=== PATIENT | female | born 1980 | race American Indian/Alaskan Native ===

== ENCOUNTER 2017-03-16 03:48 | Emergency (ER) | payer SELFPAY ==
[2017-03-16 03:48] VITALS: BMI 22.3
[2017-03-16] MEDS ORDERED: Sodium Chloride 0.9% 1,000 ML IV ONE (04:08)
[2017-03-16 04:11] VITALS: RESP 18; O2SAT 100
[2017-03-16] MEDS ORDERED: Sodium Chloride 0.9% 1,000 ML ONE (04:15)
--- NOTE | 2017-03-16 04:23 | C.PDOC ---
History Of Present Illness 36 y/o female presents to the ED for evaluation of abdominal pain and vaginal bleeding which began around 6 days ago. Patient describes her pain as sharp and cramping in nature. She also reports associated back pain. Patient states she has been having bleeding since 03/02/17 with light spotting, but her period never stopped. She denies fever, chills, nausea, vomiting, diarrhea, constipation, dysuria, changes in appetite. Time Seen by Provider: 03/16/17 04:03 Chief Complaint (Nursing): Female Genitourinary History Per: Patient History/Exam Limitations: no limitations Onset/Duration Of Symptoms: Days Current Symptoms Are (Timing): Still Present Quality Of Discomfort: "Pain" Associated Symptoms: Back Pain. denies: Fever, Chills, Nausea, Vomiting, Diarrhea, Constipation, Urinary Symptoms (dysuria ) Additional History Per: Patient Abnormal Vaginal Bleeding: Yes Past Medical History Reviewed: Historical Data, Nursing Documentation, Vital Signs Vital Signs: Last Vital Signs Temp 97.9 F 03/16/17 04:08 Pulse 83 03/16/17 04:08 Resp 18 03/16/17 04:08 BP 124/82 03/16/17 04:08 Pulse Ox 100 03/16/17 05:41 - Medical History PMH: Anemia Surgical History: No Surg Hx Family History: States: Unknown Family Hx - Social History Hx Tobacco Use: Yes Hx Alcohol Use: No Hx Substance Use: No - Immunization History Hx Tetanus Toxoid Vaccination: No Hx Influenza Vaccination: No Hx Pneumococcal Vaccination: No Review Of Systems Constitutional: Negative for: Fever, Chills Gastrointestinal: Positive for: Abdominal Pain. Negative for: Nausea, Vomiting , Diarrhea, Constipation Genitourinary: Positive for: Vaginal Bleeding. Negative for: Dysuria Musculoskeletal: Positive for: Back Pain Physical Exam - Physical Exam Appears: Non-toxic, No Acute Distress Skin: Normal Color, Warm, Dry Head: Atraumatic, Normacephalic Eye(s): bilateral: Normal Inspection Oral Mucosa: Moist Neck: Supple Chest: Symmetrical, No Deformity, No Tenderness Cardiovascular: Rhythm Regular, No Murmur Respiratory: Normal Breath Sounds, No Rales, No Rhonchi, No Wheezing Gastrointestinal/Abdominal: Soft, Tenderness (suprapubic, left lower quadrant ) , No Mass, No Distention, No Guarding, No Rebound Extremity: Bilateral: Atraumatic, Normal ROM Neurological/Psych: Oriented x3, Normal Speech Gait: Steady ED Course And Treatment - Laboratory Results Result Diagrams: 03/16/17 04:33 03/16/17 04:33 Lab Interpretation: No Acute Changes O2 Sat by Pulse Oximetry: 100 (on RA) Pulse Ox Interpretation: Normal Medical Decision Making Medical Decision Making: Impression: 36 y/o female with lower abdominal pain Plan: * labs * Toradol IV * IV Fluids * reassess and disposition Progress: labs ordered and reviewed. Hgb is 9.1, no electrolyte abnormality, UA shows RBCs. Patient received Toradol IV and IV fluids. Upon reeval patient seated comfortably in no distress. Discussed lab results with patient. She reports pain is improving, better than when she arrived to ED. I advised patient to follow up with her vault cashier and to take her iron supplements. Will discharge patient with medication. Disposition Counseled Patient/Family Regarding: Diagnosis, Need For Followup, Rx Given - [facility]position [facility] Disposition: HOME/ ROUTINE Disposition Time: 06:01 Condition: STABLE Additional Instructions: Please take medication for pain as needed and Provera for irregular bleeding. You must follow up with your vault cashier for further evaluation. Return to the emergency department at any time if symptoms persist or worsen. 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 - Scribe Statement The provider has reviewed the documentation as recorded by the Scribe (Renu Guzman) All medical record entries made by the Scribe were at my direction and personally dictated by me. I have reviewed the chart and agree that the record accurately reflects my personal performance of the history, physical exam, medical decision making, and the department course for this patient. I have also personally directed, reviewed, and agree with the discharge instructions and disposition.
[2017-03-16 04:28] LABS: RBC URINE 362 /hpf (0-3); URINE BILIRUBIN NEGATIVE (NEGATIVE); URINE BLOOD 3+ (NEGATIVE); URINE COLOR Yellow (YELLOW); URINE GLUCOSE (UA) NORMAL (Normal); URINE KETONE NEGATIVE (NEGATIVE); URINE LEUKOCYTE ESTERASE NEG Leu/uL (Negative); URINE PROTEIN 1+ mg/dL (NEGATIVE); WBC URINE 42 /hpf (0-5)
[2017-03-16 04:40] LABS: BASO # 0.1 K/uL (0.0-0.2); MEAN CORPUSCULAR HEMOGLOBIN 20.2 pg (27.0-31.0); MONO # 0.3 K/uL (0.0-0.8); WHITE BLOOD COUNT 4.6 K/uL (4.8-10.8)
[2017-03-16 04:58] LABS: BASO % 1.6 % (0.0-2.0); EOS # 0.1 K/uL (0.0-0.7); HEMATOCRIT 29.6 % (34.0-47.0); LYMPH # 1.4 K/uL (1.0-4.3); LYMPH % 30.2 % (20.0-40.0); MEAN CELL VOLUME 65.8 fL (81.0-99.0); MEAN CORPUSCULAR HGB CONC 30.7 g/dL (33.0-37.0); MEAN PLATELET VOLUME 9.8 fL (7.2-11.7); MONO % 7.2 % (0.0-10.0); NRBC % 0.3 % (0.0-2.0); RED CELL DISTRIBUTION WIDTH 20.7 % (11.5-14.5)
[2017-03-16 05:43] LABS: CHLORIDE 108 mmol/L (98-107); SODIUM 139 mmol/L (132-148)
[2017-03-16 05:44] LABS: POTASSIUM 3.6 mmol/L (3.6-5.2)
[2017-03-16 05:45] LABS: GFR AFRICAN-AMERICAN > 60
[2017-03-16 05:46] LABS: ALB/GLOB RATIO 1.1 (1.0-2.1); ALKALINE PHOSPHATASE 46 U/L (38-126); ALT/SGPT 35 U/L (9-52); AST/SGOT 35 U/L (14-36); BILIRUBIN,TOTAL 0.7 mg/dL (0.2-1.3); BLOOD UREA NITROGEN 10 mg/dL (7-17); CALCIUM 9.1 mg/dl (8.6-10.4); CARBON DIOXIDE 18 mmol/L (22-30); GLUCOSE,RANDOM 81 mg/dL (65-105); TOTAL PROTEIN 7.8 g/dL (6.3-8.3)
[2017-03-16 06:16] VITALS: BP 131/84; PULSE 77; TEMP 97.8
== END 2017-03-16 06:17 | disposition home or self-care (01) ==
LOC: C.ER 03:48
DX: N93.8 Other specified abnormal uterine and vaginal bleeding (principal)
CPT/HCPCS: 80053; 81001; 83690; 84703; 85025; 96361; 96374; 99285; J1885; J7040

== ENCOUNTER 2017-03-21 03:54 | Observation (INO) | payer SELFPAY ==
[2017-03-21 03:54] VITALS: BMI 22.3
[2017-03-21 04:36] LABS: RBC URINE 11 /hpf (0-3); URINE BACTERIA RARE (<OCC); URINE BILIRUBIN NEGATIVE (NEGATIVE); URINE BLOOD 1+ (NEGATIVE); URINE COLOR Yellow (YELLOW); URINE GLUCOSE (UA) NORMAL (Normal); URINE KETONE NEGATIVE (NEGATIVE); URINE LEUKOCYTE ESTERASE TRACE Leu/uL (Negative); URINE PROTEIN NEGATIVE (NEGATIVE); WBC URINE 4 /hpf (0-5)
[2017-03-21] MEDS ORDERED: Sodium Chloride 0.9% 1,000 ML IV ONE (04:43)
[2017-03-21] MEDS ORDERED: Sodium Chloride 0.9% 1,000 ML ONE (04:48)
--- NOTE | 2017-03-21 04:50 | C.PDOC ---
History Of Present Illness <Doreen Centeno - Last Filed: 03/21/17 06:38> <Ellis Olea - Last Filed: 03/21/17 07:53> 36 yo female w/PMHx of anemia, DUB, come in for evaluation of RLQ abdominal pain developed for past week. Pt sts, pain is constant, aching. Pt admits, was seen here on 03/16/17 and dx with DUB, received Rx: Metotrexate. Pt sts, "took 3- 4 pills, my vaginal bleeding moderate improved just spotting now but still have stomach pain". Pt admits, stopped medication due to worsening of abdominal pain. Otherwise, pt denies fever, chills, headache, dizziness, weakness, CP, SOB , dyspnea, palpitation, vomiting, diarrhea, change in appetite, back pian, UTI sx. Ambulate to ED for evaluation, not in any apparent distress. (Doreen Centeno) History Per: Patient <Doreen Centeno - Last Filed: 03/21/17 06:38> <Ellis Olea - Last Filed: 03/21/17 07:53> Time Seen by Provider: 03/21/17 04:34 Chief Complaint (Nursing): Female Genitourinary Past Medical History Reviewed: Historical Data, Nursing Documentation, Vital Signs - Medical History PMH: Anemia Surgical History: No Surg Hx Family History: States: No Known Family Hx - Social History Hx Tobacco Use: Yes Hx Alcohol Use: No Hx Substance Use: No - Immunization History Hx Tetanus Toxoid Vaccination: No Hx Influenza Vaccination: No Hx Pneumococcal Vaccination: No <Doreen Centeno - Last Filed: 03/21/17 06:38> Review Of Systems Except As Marked, All Systems Reviewed And Found Negative. Constitutional: Negative for: Fever, Chills ENT: Negative for: Throat Pain Cardiovascular: Negative for: Chest Pain, Palpitations, Edema, Light Headedness Respiratory: Negative for: Cough, Shortness of Breath Gastrointestinal: Positive for: Abdominal Pain. Negative for: Nausea, Vomiting , Diarrhea, Melena, Hematochezia, Hematemesis Genitourinary: Positive for: Vaginal Bleeding (improved). Negative for: Dysuria , Frequency, Incontinence Skin: Negative for: Rash Neurological: Negative for: Weakness, Numbness, Altered Mental Status, Headache , Dizziness <Doreen Centeno - Last Filed: 03/21/17 06:38> Physical Exam - Physical Exam Appears: Well, Non-toxic, No Acute Distress Skin: Normal Color, Warm, Dry, No Rash Eye(s): bilateral: PERRL Nose: No Discharge Oral Mucosa: Moist, No Drooling Throat: No Erythema, No Drooling Neck: Supple Cardiovascular: Rhythm Regular, No Friction Rub, No Murmur, No JVD Respiratory: No Decreased Breath Sounds, No Accessory Muscle Use, No Stridor, No Wheezing Gastrointestinal/Abdominal: Soft, Tenderness (RLQ tenderness), No Distention, No Guarding Back: No CVA Tenderness Extremity: No Pedal Edema, No Deformity Neurological/Psych: Oriented x3, Normal Speech <Doreen Centeno - Last Filed: 03/21/17 06:38> ED Course And Treatment - Laboratory Results Result Diagrams: 03/21/17 05:10 03/21/17 05:10 Lab Interpretation: Abnormal Urine POC: Negative O2 Sat by Pulse Oximetry: 100 Pulse Ox Interpretation: Normal <Doreen Centeno - Last Filed: 03/21/17 06:38> - Laboratory Results Result Diagrams: 03/21/17 05:10 03/21/17 05:10 <Ellis Olea - Last Filed: 03/21/17 07:53> ED OBSERVATION Date of observation admission: 03/21/17 Time of observation admission: 04:35 <Doreen Centeno - Last Filed: 03/21/17 06:38> <Ellis Olea - Last Filed: 03/21/17 07:53> - Observation admission statement Patient is being placed in observation because:: Abdominal pain (Doreen Centeno) - Goals of Observation Goals of observation are:: Diagnostics, imaging, analgesics, re-evaluation (Doreen Centeno) - Progress Note Progress Note: 03/21/17 5:2-, pt resting comfortably, not in any apparent distress. Afebrile, hemodynamicaly stable. non-toxic. Abd: benign, (-) guarding, (-) rebound. back: (-) CVA tenderness. Blood work review and appears abnormal compare to previous from 03/16/17. Pt has drop in H/H by [address] abd/pelvis. Results discussed with pt, denies previous hx of acute anemia or transfusion. Possible admission offered to pt, but still await imaging. 06:38, pt appears unchanged. Hemodynamicaly stable. Abd: benign. CT abd/pelvis performed await results. Case sign out to DENNIS Castro and . Pending: imaging results, re- evaluation, possible admission due to acute anemia. (Doreen Centeno) 03/21/17 07:46 Signed out to me at change of shift pending CT. IMPRESSION: 1. Numerous gallstones. 2. Probable ovarian cyst on the left of approximately 2 cm. Ovarian cyst on the right of approximately 3 cm. 3. -The appendix is normal. 4. No acute inflammatory process. No obstruction. Patient with acute blood loss anemia with Hb less than 8, symptomatic with lightheadedness and blurry vision, will require blood transfusion, which was already ordered. Will place on observation. (Ellis Olea) Disposition <Doreen Centeno - Last Filed: 03/21/17 06:38> Discussed With DrIrena: Laz Andres Doctor Will See Patient In The: ED - Disposition Disposition Time: 04:35 <Ellis Olea - Last Filed: 03/21/17 07:53> - Disposition Disposition: HOSPITALIZED Condition: FAIR - Clinical Impression Clinical Impression: Symptomatic anemia
[2017-03-21 05:17] LABS: EOS # 0.1 K/uL (0.0-0.7); MONO # 0.2 K/uL (0.0-0.8)
[2017-03-21 05:37] LABS: CHLORIDE 106 mmol/L (98-107); SODIUM 141 mmol/L (132-148)
[2017-03-21 05:39] LABS: BILIRUBIN,TOTAL 0.8 mg/dL (0.2-1.3); GFR AFRICAN-AMERICAN > 60
[2017-03-21 05:40] LABS: ALKALINE PHOSPHATASE 62 U/L (38-126); ALT/SGPT 49 U/L (9-52); AST/SGOT 68 U/L (14-36); BLOOD UREA NITROGEN 10 mg/dL (7-17); CARBON DIOXIDE 23 mmol/L (22-30); GLUCOSE,RANDOM 85 mg/dL (65-105); TOTAL PROTEIN 7.8 g/dL (6.3-8.3)
[2017-03-21 05:41] LABS: CALCIUM 9.3 mg/dl (8.6-10.4)
[2017-03-21 05:42] LABS: POTASSIUM 4.8 mmol/L (3.6-5.2)
[2017-03-21] MEDS ORDERED: Iodixanol 320 MG/ML 100 ML BOTTLE IV ONE (05:46)
[2017-03-21 06:00] LABS: BASO % 0.7 % (0.0-2.0); HEMATOCRIT 25.4 % (34.0-47.0); LYMPH # 2.7 K/uL (1.0-4.3); LYMPH % 60.6 % (20.0-40.0); MEAN CELL VOLUME 66.3 fL (81.0-99.0); MEAN CORPUSCULAR HEMOGLOBIN 19.8 pg (27.0-31.0); MEAN CORPUSCULAR HGB CONC 29.8 g/dL (33.0-37.0); MEAN PLATELET VOLUME 10.5 fL (7.2-11.7); PLATELET COUNT 111 K/uL (130-400); RED CELL DISTRIBUTION WIDTH 21.4 % (11.5-14.5); WHITE BLOOD COUNT 4.5 K/uL (4.8-10.8)
[2017-03-21 07:30] LABS: BASOPHIL 2 % (0-2); EOSINOPHIL 2 % (0-4); NEUTROPHIL 44 % (50-75); REACTIVE LYMPHOCYTES 28 % (0-0); TOTAL CELLS COUNTED 100
--- NOTE | 2017-03-21 09:28 | CP.PCM.HP ---
<James Fernandes - Last Filed: 03/21/17 10:37> History of Present Illness - History of Present Illness History of Present Illness: PGY1 Note for Dr. Andres HPI: Patient is a 36 year old AA female with a PMH of anemia diagnosed in 1999 by her PMD. She comes to the ED today with a CC of abdominal pain for 10d duration. She came to the ER on Thursday and they told her she dysfunctional vaginal bleeding and gave her naproxen and medroxyprogesterone. She said she continued to bleed and did not tolerate the medroxyprogesterone so she stopped taking it. It was associated with blurry vision and a ALEJANDRO. Nothing makes it better or worse. She describes the pain as a gas like pain and is associated with burping. It is mainly located on the left side and flank that radiates to her back. She states it is a 7/10. It has been constant since its onset. Her FDLMP was 03/02 and ended on 03/08 but she did have spotting until the . This is not regular for her. Her last BM was yesterday. She is complaining of weakness, dizzyness, blurry vision, ALEJANDRO, leg pain in her L. popliteal fossa that has resolved and vaginal d/c that is red and has an odor. She denies F, chills, N/V/D, constipation, cough, SOB, hemoptysis, speech changes, confusion, CP, rash , Urinary changes or blood in her urine. Denies sick contacts. Has traveled to [place] last month. She had one prior episode of vaginal bleeding 9 years ago that stopped spontaneously. PMH: anemia in 1999, blood transfusion in 2006 PSH: in FH: Mom, DM; Dad, unknown; sister, DM SH: Sexually active with no protection, works at [employer], single, lives with her son, smokes 3 black and milds per day, drinks on the weekends, smokes marijuana 4x/d Meds: Naproxen 500mg, medroxyprogesterone 10mg All: NKA ROS: * Const = denies WL * HEENT = blurry vision * Lungs = denies * Heart = denies, no echo, no cath * GI = denies * Renal = denies * = denies * Breast = Denies * Neuro = denies seizure, CVA, Memory changes, MS, Alzheimer, + weakness * Endo = denies thyroid, DM * Psych = no prior hospitalizations * Skin = denies * Onc = no hx of cancer of immune problems * Heme = denies easy bruising, leukemia, clots, + anemia/prior transfusion in 2006 * ID = denies hx of MRSA, C.diff, HIV Present on Admission - Present on Admission Any Indicators Present on Admission: No History of DVT/PE: No History of Uncontrolled Diabetes: No Urinary Catheter: No Decubitus Ulcer Present: No History Surgical Site Infection Following: None Review of Systems - Constitutional Constitutional: As Per HPI - EENT Eyes: As Per HPI Ears: As Per HPI Nose/Mouth/Throat: As Per HPI - Breasts Breasts: As Per HPI - Cardiovascular Cardiovascular: As Per HPI - Respiratory Respiratory: As Per HPI - Gastrointestinal Gastrointestinal: As Per HPI - Genitourinary Genitourinary: As Per HPI - Reproductive: Female Reproductive:Female: As Per HPI - Menstruation Menstruation: As Per HPI - Musculoskeletal Musculoskeletal: As Per HPI - Integumentary Integumentary: As Per HPI - Neurological Neurological: As Per HPI - Psychiatric Psychiatric: As Per HPI - Endocrine Endocrine: As Per HPI - Hematologic/Lymphatic Hematologic: As Per HPI Past Patient History - Past Social History Smoking Status: Light Smoker < 10 Cigarettes Daily - CARDIAC Hx Cardiac Disorders: No - HEMATOLOGICAL/ONCOLOGICAL Hx Anemia: Yes - PSYCHIATRIC Hx Substance Use: No - SURGICAL HISTORY Hx Surgeries: Yes Hx Section: Yes - ANESTHESIA Hx Anesthesia: Yes Hx Anesthesia Reactions: No Hx Malignant Hyperthermia: No Meds Allergies/Adverse Reactions: Allergies Allergy/AdvReac Type Severity Reaction Status Date / Time No Known Allergies Allergy Verified 03/16/17 04:06 Physical Exam - Constitutional Appears: Well, Non-toxic, No Acute Distress - Head Exam Head Exam: ATRAUMATIC, NORMAL INSPECTION, NORMOCEPHALIC - Eye Exam Eye Exam: EOMI - ENT Exam ENT Exam: Mucous Membranes Moist - Respiratory Exam Respiratory Exam: Clear to Auscultation Bilateral, NORMAL BREATHING PATTERN - Cardiovascular Exam Cardiovascular Exam: REGULAR RHYTHM, RRR. absent: Tachycardia Additional comments: carotid bruit - GI/Abdominal Exam GI & Abdominal Exam: Normal Bowel Sounds, Soft, Tenderness (tenderness more in the LLQ). absent: Distended, Firm - Extremities Exam Extremities exam: Negative for: calf tenderness, joint swelling, tenderness - Neurological Exam Neurological exam: Alert, Oriented x3 - Psychiatric Exam Psychiatric exam: Normal Affect, Normal Mood - Skin Skin Exam: Dry, Intact, Normal Color, Warm Results - Vital Signs Recent Vital Signs: Last Vital Signs Temp 98.1 F 03/21/17 04:00 Pulse 83 03/21/17 08:33 Resp 16 03/21/17 08:33 BP 128/98 H 03/21/17 08:33 Pulse Ox 97 03/21/17 08:33 - Labs Result Diagrams: 03/21/17 05:10 03/21/17 05:10 Labs: Laboratory Results - last 24 hr 03/21/17 03/21/17 03/21/17 05:10 05:10 07:17 WBC 4.5 L RBC 3.82 Hgb 7.6 L Hct 25.4 L MCV 66.3 L MCH 19.8 L MCHC 29.8 L RDW 21.4 H Plt Count 111 L MPV 10.5 Neut % (Auto) 32.7 L Lymph % (Auto) 60.6 H [place] % (Auto) 4.0 Eos % (Auto) 2.0 Baso % (Auto) 0.7 Neut # 1.5 L Lymph # 2.7 [place] # 0.2 Eos # 0.1 Baso # 0.0 Neutrophils % (Manual) 44 L Lymphocytes % (Manual) 20 Reactive Lymphs % 28 H Monocytes % (Manual) 4 Eosinophils % (Manual) 2 Basophils % (Manual) 2 Platelet Estimate Decreased L Anisocytosis (manual) Moderate Microcytosis (manual) Moderate Sodium 141 Potassium 4.8 Chloride 106 Carbon Dioxide 23 Anion Gap 17 BUN 10 Creatinine 0.5 L Est GFR ( Amer) > 60 Est GFR (Non-Af Amer) > 60 Random Glucose 85 Calcium 9.3 Total Bilirubin 0.8 AST 68 H D ALT 49 Alkaline Phosphatase 62 Total Protein 7.8 Albumin 4.0 Globulin 3.8 Albumin/Globulin Ratio 1.0 Blood Type B POSITIVE Blood Type Confirm B POSITIVE Antibody Screen Negative Assessment & Plan - Assessment and Plan (Free Text) Assessment: Anemia * Transfuse 2 units * Premedicate with Benadryl 12.5 IV Abdominal Pain * CT - F/U * Transvaginal US - F/U * Skid Strapper ([facility]) - d/c to clinic to evaluate further * Percocet 5/325 Vaginal Discharge * Risky sexual behavior * HIV, STDs test - F/U Blurry Vision * CT head - F/U * Carotid doppler - F/U ALEJANDRO * CT head - F/U Leg Pain * Venous duplex - F/U PPX * Ambulate * Pepcid 20 QD * Lovenox 40 SC QD - Date & Time Date: 03/21/17 Time: 11:01 Decision To Admit - Pt Status Changed To: Hospital Disposition Of: Observation - . Bed Request Type: Regular Admitting Physician: Laz Andres <Laz Andres - Last Filed: 03/21/17 11:31> Results - Vital Signs Recent Vital Signs: Last Vital Signs Temp 98.0 F 03/21/17 09:55 Pulse 70 03/21/17 10:31 Resp 18 03/21/17 10:31 BP 115/73 03/21/17 10:31 Pulse Ox 100 03/21/17 10:31 - Labs Result Diagrams: 03/21/17 05:10 03/21/17 05:10 Labs: Laboratory Results - last 24 hr 03/21/17 03/21/17 03/21/17 05:10 05:10 07:17 WBC 4.5 L RBC 3.82 Hgb 7.6 L Hct 25.4 L MCV 66.3 L MCH 19.8 L MCHC 29.8 L RDW 21.4 H Plt Count 111 L MPV 10.5 Neut % (Auto) 32.7 L Lymph % (Auto) 60.6 H [place] % (Auto) 4.0 Eos % (Auto) 2.0 Baso % (Auto) 0.7 Neut # 1.5 L Lymph # 2.7 [place] # 0.2 Eos # 0.1 Baso # 0.0 Neutrophils % (Manual) 44 L Lymphocytes % (Manual) 20 Reactive Lymphs % 28 H Monocytes % (Manual) 4 Eosinophils % (Manual) 2 Basophils % (Manual) 2 Platelet Estimate Decreased L Anisocytosis (manual) Moderate Microcytosis (manual) Moderate Sodium 141 Potassium 4.8 Chloride 106 Carbon Dioxide 23 Anion Gap 17 BUN 10 Creatinine 0.5 L Est GFR ( Amer) > 60 Est GFR (Non-Af Amer) > 60 Random Glucose 85 Calcium 9.3 Total Bilirubin 0.8 AST 68 H D ALT 49 Alkaline Phosphatase 62 Total Protein 7.8 Albumin 4.0 Globulin 3.8 Albumin/Globulin Ratio 1.0 Blood Type B POSITIVE Blood Type Confirm B POSITIVE Antibody Screen Negative Attending/Attestation - Attestation I have personally seen and examined this patient.: Yes I have fully participated in the care of the patient.: Yes I have reviewed all pertinent clinical information: Yes Notes (Text): Medical Attending: Patient was seen and examined by me Agree with the above note by the resident. Patient was seen in the ER bed 11. She explained her bleeding had mostly stopped, however was feeling weak, tired, dizzy, also reporting blurry vision. ER has done a CT of the head which did not show any acute findings. Orders for carotid ultrasound ordered. It is possible her sysptoms related to her anemia so she will be having 2 units of PRBCs given. Also ordering pelivic/vaginal ultrasound to further assess the dysfunctional uterine bleeding thank you Laz Andres
[2017-03-21] MEDS ORDERED: DiphenhydrAMINE 12.5 mg/5 ml LIQ UD (5 ml) PO STA (09:32)
[2017-03-21] MEDS ORDERED: DiphenhydrAMINE 50 mg/ml Inj ONE (09:37)
--- NOTE | 2017-03-21 11:10 | CT ---
PROCEDURE: CT Abdomen and Pelvis with contrast HISTORY: RLQ COMPARISON: None available TECHNIQUE: Contrast dose: 100 mL Visipaque Radiation dose: Total exam DLP = 208.32 mGy-cm. This CT exam was performed using one or more of the following dose reduction techniques: Automated exposure control, adjustment of the mA and/or kV according to patient size, and/or use of iterative reconstruction technique. FINDINGS: LOWER THORAX: No visible consolidation, pleural effusion, or pneumothorax. LIVER: Low-attenuation about the portal venous branches may be related to hydration. Correlate with LFTs. GALLBLADDER AND BILE DUCTS: Cholelithiasis. PANCREAS: Unremarkable. SPLEEN: Unremarkable. ADRENALS: Unremarkable. KIDNEYS AND URETERS: The kidneys enhance symmetrically. No hydronephrosis or obstructing calculus identified. VASCULATURE: No aortic aneurysm. BOWEL: Stomach is nondistended. Lack of oral contrast limits evaluation for bowel pathology. Bowel loops appear within normal limits of caliber without evidence of obstruction. APPENDIX: The appendix appears within normal limits of caliber. No secondary signs of acute appendicitis. PERITONEUM: No significant free fluid. No definite free air. LYMPH NODES: No bulky adenopathy. BLADDER: Unremarkable. REPRODUCTIVE: The uterus is present. Probable 2 cm left ovarian cyst. Suspect 3 cm right ovarian cyst. BONES: No acute osseous abnormality is detected. OTHER FINDINGS: None. IMPRESSION: Cholelithiasis. Probable 2 cm left ovarian and 3 cm right ovarian cyst. Pelvic ultrasound may be considered for further evaluation. Additional findings as above. Preliminary impression was provided by virtual radiologic.
--- NOTE | 2017-03-21 12:18 | CT ---
PROCEDURE: CT HEAD WITHOUT CONTRAST. HISTORY: ALEJANDRO COMPARISON: None available. TECHNIQUE: Axial computed tomography images were obtained through the head/brain without intravenous contrast. Radiation dose: Total exam DLP = 866.91 mGy-cm. This CT exam was performed using one or more of the following dose reduction techniques: Automated exposure control, adjustment of the mA and/or kV according to patient size, and/or use of iterative reconstruction technique. FINDINGS: HEMORRHAGE: No intracranial hemorrhage. BRAIN: No mass effect or edema. No atrophy or chronic microvascular ischemic changes.Please note that MRI with diffusion imaging is more sensitive in the detection of acute ischemic event. VENTRICLES: No hydrocephalus. CALVARIUM: Unremarkable. PARANASAL SINUSES: Unremarkable as visualized. No significant inflammatory changes. MASTOID AIR CELLS: Unremarkable as visualized. No inflammatory changes. OTHER FINDINGS: None. IMPRESSION: No acute intracranial pathology identified.
--- NOTE | 2017-03-21 13:23 | US ---
HISTORY: vaginal bleeding COMPARISON: None available. TECHNIQUE: Real-time transabdominal pelvic ultrasound was performed. In addition a transvaginal pelvic ultrasound was necessary to better depict pelvic anatomy. FINDINGS: UTERUS: Measures 12.2 x 5.2 x 6.6 cm. Anteverted. Heterogeneous uterine echotexture limits evaluation for small masses are fibroids. Multiple probable tiny fibroids are identified. The 2 largest: 1.3 x 1.3 x 1.5 cm and 1.3 x 1.3 x 1.7 cm fundal fibroids. ENDOMETRIUM: Measures 9 mm in diameter. CERVIX: No cervical abnormality identified. RIGHT OVARY: Measures 3.8 x 2.9 x 3.8 cm. Blood flow is demonstrated. Complex appearing cyst measures approximately 2.5 x 1.8 x 2.4 cm. LEFT OVARY: Measures 4.1 x 3.1 x 3.4 cm. Blood flow is demonstrated. 2.3 x 2.1 x 2.6 cm cyst. FREE FLUID: No significant free fluid noted. OTHER FINDINGS: None. IMPRESSION: Heterogeneous uterine echotexture limits evaluation for small masses are fibroids. Multiple probable tiny fibroids are identified. The 2 largest: 1.3 x 1.3 x 1.5 cm and 1.3 x 1.3 x 1.7 cm fundal fibroids. Complex appearing right ovarian cyst measures approximately 2.5 x 1.8 x 2.4 cm. Recommend 6 week ultrasound follow-up to assess for complete resolution. 2.3 x 2.1 x 2.6 cm left ovarian cyst.
[2017-03-21] MEDS: Enoxaparin 40 mg Syringe SC SCH (14:14)
[2017-03-21 17:32] VITALS: O2SAT 100
[2017-03-21 19:43] LABS: BASO % 0.5 % (0.0-2.0); EOS # 0.1 K/uL (0.0-0.7); EOS % 2.3 % (0.0-4.0); HEMATOCRIT 31.4 % (34.0-47.0); LYMPH # 1.5 K/uL (1.0-4.3); LYMPH % 25.4 % (20.0-40.0); MEAN CORPUSCULAR HGB CONC 30.4 g/dL (33.0-37.0); MEAN PLATELET VOLUME 9.5 fL (7.2-11.7); MONO # 0.4 K/uL (0.0-0.8); NRBC % 0.1 % (0.0-2.0); RED CELL DISTRIBUTION WIDTH 24.6 % (11.5-14.5); WHITE BLOOD COUNT 6.1 K/uL (4.8-10.8)
[2017-03-21 19:46] LABS: MEAN CELL VOLUME 72.2 fL (81.0-99.0)
[2017-03-21] MEDS: Oxycodone/Acetaminophen 5/325 mg Tab PO PRN (22:21)
[2017-03-22 01:51] VITALS: RESP 20
[2017-03-22] MEDS: Oxycodone/Acetaminophen 5/325 mg Tab PO PRN ×2 (08:25→14:02)
[2017-03-22 08:26] VITALS: BP 144/79; PULSE 66; TEMP 98.3
[2017-03-22 08:50] LABS: BASO % 0.5 % (0.0-2.0); EOS # 0.2 K/uL (0.0-0.7); EOS % 2.5 % (0.0-4.0); HEMATOCRIT 30.8 % (34.0-47.0); LYMPH # 1.9 K/uL (1.0-4.3); LYMPH % 29.5 % (20.0-40.0); MEAN CELL VOLUME 71.3 fL (81.0-99.0); MEAN CORPUSCULAR HEMOGLOBIN 22.8 pg (27.0-31.0); MEAN CORPUSCULAR HGB CONC 31.9 g/dL (33.0-37.0); MEAN PLATELET VOLUME 10.5 fL (7.2-11.7); MONO # 0.4 K/uL (0.0-0.8); MONO % 6.1 % (0.0-10.0); NRBC % 0.1 % (0.0-2.0); WHITE BLOOD COUNT 6.5 K/uL (4.8-10.8)
[2017-03-22 08:52] LABS: ALB/GLOB RATIO 1.1 (1.0-2.1); ALKALINE PHOSPHATASE 55 U/L (38-126); ALT/SGPT 89 U/L (9-52); AST/SGOT 60 U/L (14-36); BILIRUBIN,TOTAL 0.6 mg/dL (0.2-1.3); BLOOD UREA NITROGEN 9 mg/dL (7-17); CALCIUM 8.9 mg/dl (8.6-10.4); CARBON DIOXIDE 21 mmol/L (22-30); CHLORIDE 107 mmol/L (98-107); GFR AFRICAN-AMERICAN > 60; GLUCOSE,RANDOM 75 mg/dL (65-105); POTASSIUM 3.8 mmol/L (3.6-5.2); SODIUM 136 mmol/L (132-148); TOTAL PROTEIN 6.1 g/dL (6.3-8.3)
[2017-03-22] MEDS: Enoxaparin 40 mg Syringe SC SCH (10:00)
--- NOTE | 2017-03-22 13:27 | CP.PCM.DIS ---
<James Fernandes - Last Filed: 03/22/17 13:49> Provider - Provider Date of Admission: 03/21/17 04:35 Attending physician: Laz Andres DO Consults: FILM DEVELOPER = Prashanth Time Spent in preparation of Discharge (in minutes): 60 Diagnosis - Discharge Diagnosis (1) Fibroid uterus Status: Acute Priority: Medium Hospital Course - Lab Results Lab Results: Most Recent Lab Values WBC 6.5 K/uL (4.8-10.8) 03/22/17 08:20 RBC 4.32 Mil/uL (3.80-5.20) 03/22/17 08:20 Hgb 9.8 g/dL (11.0-16.0) L 03/22/17 08:20 Hct 30.8 % (34.0-47.0) L 03/22/17 08:20 MCV 71.3 fL (81.0-99.0) L 03/22/17 08:20 MCH 22.8 pg (27.0-31.0) L 03/22/17 08:20 MCHC 31.9 g/dL (33.0-37.0) L 03/22/17 08:20 RDW 25.0 % (11.5-14.5) H 03/22/17 08:20 Plt Count 93 K/uL (130-400) L 03/22/17 08:20 MPV 10.5 fL (7.2-11.7) 03/22/17 08:20 Neut % (Auto) 61.4 % (50.0-75.0) 03/22/17 08:20 Lymph % (Auto) 29.5 % (20.0-40.0) 03/22/17 08:20 Love % (Auto) 6.1 % (0.0-10.0) 03/22/17 08:20 Eos % (Auto) 2.5 % (0.0-4.0) 03/22/17 08:20 Baso % (Auto) 0.5 % (0.0-2.0) 03/22/17 08:20 Neut # 4.0 K/uL (1.8-7.0) 03/22/17 08:20 Lymph # 1.9 K/uL (1.0-4.3) 03/22/17 08:20 Love # 0.4 K/uL (0.0-0.8) 03/22/17 08:20 Eos # 0.2 K/uL (0.0-0.7) 03/22/17 08:20 Baso # 0.0 K/uL (0.0-0.2) 03/22/17 08:20 Neutrophils % (Manual) 44 % (50-75) L 03/21/17 05:10 Lymphocytes % (Manual) 20 % (20-40) 03/21/17 05:10 Reactive Lymphs % 28 % (0-0) H 03/21/17 05:10 Monocytes % (Manual) 4 % (0-10) 03/21/17 05:10 Eosinophils % (Manual) 2 % (0-4) 03/21/17 05:10 Basophils % (Manual) 2 % (0-2) 03/21/17 05:10 Differential Comment 03/22/17 08:20 Platelet Estimate Decreased (NORMAL) L 03/21/17 05:10 Anisocytosis (manual) Moderate 03/21/17 05:10 Microcytosis (manual) Moderate 03/21/17 05:10 Sodium 136 mmol/L (132-148) 03/22/17 08:20 Potassium 3.8 mmol/L (3.6-5.2) 03/22/17 08:20 Chloride 107 mmol/L (98-107) 03/22/17 08:20 Carbon Dioxide 21 mmol/L (22-30) L 03/22/17 08:20 Anion Gap 12 (10-20) 03/22/17 08:20 BUN 9 mg/dL (7-17) 03/22/17 08:20 Creatinine 0.6 MG/DL (0.7-1.2) L 03/22/17 08:20 Est GFR ( Amer) > 60 03/22/17 08:20 Est GFR (Non-Af Amer) > 60 03/22/17 08:20 Random Glucose 75 mg/dL (65-105) 03/22/17 08:20 Calcium 8.9 mg/dl (8.6-10.4) 03/22/17 08:20 Total Bilirubin 0.6 mg/dL (0.2-1.3) 03/22/17 08:20 AST 60 U/L (14-36) H 03/22/17 08:20 ALT 89 U/L (9-52) H D 03/22/17 08:20 Alkaline Phosphatase 55 U/L (38-126) 03/22/17 08:20 Total Protein 6.1 g/dL (6.3-8.3) L 03/22/17 08:20 Albumin 3.2 g/dL (3.5-5.0) L 03/22/17 08:20 Globulin 2.9 gm/dL (2.2-3.9) 03/22/17 08:20 Albumin/Globulin Ratio 1.1 (1.0-2.1) 03/22/17 08:20 Urine Color Yellow (YELLOW) 03/21/17 04:27 Urine Clarity Hazy (Clear) 03/21/17 04:27 Urine pH 6.0 (5.0-8.0) 03/21/17 04:27 Ur Specific [place] 1.018 (1.003-1.030) 03/21/17 04:27 Urine Protein Negative mg/dL (NEGATIVE) 03/21/17 04:27 Urine Glucose (UA) Normal mg/dL (Normal) 03/21/17 04:27 Urine Ketones Negative mg/dL (NEGATIVE) 03/21/17 04:27 Urine Blood 1+ (NEGATIVE) H 03/21/17 04:27 Urine Nitrate Negative (NEGATIVE) 03/21/17 04:27 Urine Bilirubin Negative (NEGATIVE) 03/21/17 04:27 Urine Urobilinogen 4.0 mg/dL (0.2-1.0) H 03/21/17 04:27 Ur Leukocyte Esterase Trace Chuck/uL (Negative) 03/21/17 04:27 Urine WBC (Auto) 4 /hpf (0-5) 03/21/17 04:27 Urine RBC (Auto) 11 /hpf (0-3) H 03/21/17 04:27 Ur Squamous Epith Cells 11 /hpf (0-5) H 03/21/17 04:27 Urine Bacteria Rare (<OCC) 03/21/17 04:27 Urine HCG, Qual Negative (NEGATIVE) 03/21/17 04:27 Blood Type B POSITIVE 03/21/17 07:17 Blood Type Confirm B POSITIVE 03/21/17 07:17 Antibody Screen Negative 03/21/17 07:17 - Hospital Course Hospital Course: Patient is a 36 year old AA female with a PMH of anemia diagnosed in 1999 by her PMD. She comes to the ED today with a CC of abdominal pain for 10d duration. She came to the ER on Thursday and they told her she dysfunctional vaginal bleeding and gave her naproxen and medroxyprogesterone. She said she continued to bleed and did not tolerate the medroxyprogesterone so she stopped taking it. It was associated with blurry vision and a ALEJANDRO. Nothing makes it better or worse. She describes the pain as a gas like pain and is associated with burping. It is mainly located on the left side and flank that radiates to her back. She states it is a 7/10. It has been constant since its onset. Her FDLMP was 03/02 and ended on 03/08 but she did have spotting until the . This is not regular for her. Her last BM was yesterday. She is complaining of weakness, dizzyness, blurry vision, ALEJANDRO, leg pain in her L. popliteal fossa that has resolved and vaginal d/c that is red and has an odor. She denies F, chills, N/V/D, constipation, cough, SOB, hemoptysis, speech changes, confusion, CP, rash , Urinary changes or blood in her urine. Denies sick contacts. Has traveled to [place] last month. She had one prior episode of vaginal bleeding 9 years ago that stopped spontaneously. Patient refused 2 units of blood in the ER A head CT was done and was negative A carotid doppler and lower extremity US was also done Per FILM DEVELOPER, a Transvaginal US was done and showed multiple small fibroids of the uterus and ovarian cysts. The patients bleeding turned to slight spotting. She will follow up in the outpatient clinic for evaluation of her fibroid uterus. - Date & Time of H&P Date of H&P: 03/21/17 Time of H&P: 09:25 Discharge Exam - Head Exam Head Exam: ATRAUMATIC, NORMAL INSPECTION, NORMOCEPHALIC - Eye Exam Eye Exam: EOMI - ENT Exam ENT Exam: Mucous Membranes Moist - Respiratory Exam Respiratory Exam: NORMAL BREATHING PATTERN, UNREMARKABLE - Cardiovascular Exam Cardiovascular Exam: REGULAR RHYTHM. absent: Gallop, RRR, Rubs - GI/Abdominal Exam GI & Abdominal Exam: Normal Bowel Sounds, Soft. absent: Distended, Tenderness - Neurological Exam Neurological exam: Alert, Oriented x3 - Psychiatric Exam Psychiatric exam: Normal Affect, Normal Mood - Skin Skin Exam: Dry, Intact, Normal Color, Warm Discharge Plan - Discharge Medications Prescriptions: Ibuprofen [Motrin] 600 mg PO BID PRN #10 tab PRN Reason: Pain, Moderate (4-7) oxyCODONE/Acetaminophen [Percocet 5/325 mg Tab] 1 tab PO BID PRN #10 tab PRN Reason: Pain, Moderate (4-7) - Follow Up Plan Condition: FAIR Disposition: HOME/ ROUTINE Instructions: Dysfunctional Uterine Bleeding (DC), How to Stop Smoking (DC), Anemia (DC) Additional Instructions: Pt is medically stable and clear for discharge. She is to follow up in our clinic in one weeks time. The number to the clinic will be provided on discharge. Patient is to be evaluated by a order filler for her fibroid uterus. If symptoms return and she feels weak, dizzy, lightheaded or passes out she should return to the ER. Prescription instructions will be provided at discharge Patient is to alternate between the Motrin and Percocet for pain control - This was explained in detail to the patient Referrals: [facility] [Outside] <Cory Guzman - Last Filed: 03/22/17 18:03> Provider - Provider Date of Admission: 03/21/17 04:35 Attending physician: Laz Andres, DO Hospital Course - Lab Results Lab Results: Most Recent Lab Values WBC 6.5 K/uL (4.8-10.8) 03/22/17 08:20 RBC 4.32 Mil/uL (3.80-5.20) 03/22/17 08:20 Hgb 9.8 g/dL (11.0-16.0) L 03/22/17 08:20 Hct 30.8 % (34.0-47.0) L 03/22/17 08:20 MCV 71.3 fL (81.0-99.0) L 03/22/17 08:20 MCH 22.8 pg (27.0-31.0) L 03/22/17 08:20 MCHC 31.9 g/dL (33.0-37.0) L 03/22/17 08:20 RDW 25.0 % (11.5-14.5) H 03/22/17 08:20 Plt Count 93 K/uL (130-400) L 03/22/17 08:20 MPV 10.5 fL (7.2-11.7) 03/22/17 08:20 Neut % (Auto) 61.4 % (50.0-75.0) 03/22/17 08:20 Lymph % (Auto) 29.5 % (20.0-40.0) 03/22/17 08:20 Love % (Auto) 6.1 % (0.0-10.0) 03/22/17 08:20 Eos % (Auto) 2.5 % (0.0-4.0) 03/22/17 08:20 Baso % (Auto) 0.5 % (0.0-2.0) 03/22/17 08:20 Neut # 4.0 K/uL (1.8-7.0) 03/22/17 08:20 Lymph # 1.9 K/uL (1.0-4.3) 03/22/17 08:20 Love # 0.4 K/uL (0.0-0.8) 03/22/17 08:20 Eos # 0.2 K/uL (0.0-0.7) 03/22/17 08:20 Baso # 0.0 K/uL (0.0-0.2) 03/22/17 08:20 Neutrophils % (Manual) 44 % (50-75) L 03/21/17 05:10 Lymphocytes % (Manual) 20 % (20-40) 03/21/17 05:10 Reactive Lymphs % 28 % (0-0) H 03/21/17 05:10 Monocytes % (Manual) 4 % (0-10) 03/21/17 05:10 Eosinophils % (Manual) 2 % (0-4) 03/21/17 05:10 Basophils % (Manual) 2 % (0-2) 03/21/17 05:10 Differential Comment 03/22/17 08:20 Platelet Estimate Decreased (NORMAL) L 03/21/17 05:10 Anisocytosis (manual) Moderate 03/21/17 05:10 Microcytosis (manual) Moderate 03/21/17 05:10 Sodium 136 mmol/L (132-148) 03/22/17 08:20 Potassium 3.8 mmol/L (3.6-5.2) 03/22/17 08:20 Chloride 107 mmol/L (98-107) 03/22/17 08:20 Carbon Dioxide 21 mmol/L (22-30) L 03/22/17 08:20 Anion Gap 12 (10-20) 03/22/17 08:20 BUN 9 mg/dL (7-17) 03/22/17 08:20 Creatinine 0.6 MG/DL (0.7-1.2) L 03/22/17 08:20 Est GFR ( Amer) > 60 03/22/17 08:20 Est GFR (Non-Af Amer) > 60 03/22/17 08:20 Random Glucose 75 mg/dL (65-105) 03/22/17 08:20 Calcium 8.9 mg/dl (8.6-10.4) 03/22/17 08:20 Total Bilirubin 0.6 mg/dL (0.2-1.3) 03/22/17 08:20 AST 60 U/L (14-36) H 03/22/17 08:20 ALT 89 U/L (9-52) H D 03/22/17 08:20 Alkaline Phosphatase 55 U/L (38-126) 03/22/17 08:20 Total Protein 6.1 g/dL (6.3-8.3) L 03/22/17 08:20 Albumin 3.2 g/dL (3.5-5.0) L 03/22/17 08:20 Globulin 2.9 gm/dL (2.2-3.9) 03/22/17 08:20 Albumin/Globulin Ratio 1.1 (1.0-2.1) 03/22/17 08:20 Urine Color Yellow (YELLOW) 03/21/17 04:27 Urine Clarity Hazy (Clear) 03/21/17 04:27 Urine pH 6.0 (5.0-8.0) 03/21/17 04:27 Ur Specific [place] 1.018 (1.003-1.030) 03/21/17 04:27 Urine Protein Negative mg/dL (NEGATIVE) 03/21/17 04:27 Urine Glucose (UA) Normal mg/dL (Normal) 03/21/17 04:27 Urine Ketones Negative mg/dL (NEGATIVE) 03/21/17 04:27 Urine Blood 1+ (NEGATIVE) H 03/21/17 04:27 Urine Nitrate Negative (NEGATIVE) 03/21/17 04:27 Urine Bilirubin Negative (NEGATIVE) 03/21/17 04:27 Urine Urobilinogen 4.0 mg/dL (0.2-1.0) H 03/21/17 04:27 Ur Leukocyte Esterase Trace Chuck/uL (Negative) 03/21/17 04:27 Urine WBC (Auto) 4 /hpf (0-5) 03/21/17 04:27 Urine RBC (Auto) 11 /hpf (0-3) H 03/21/17 04:27 Ur Squamous Epith Cells 11 /hpf (0-5) H 03/21/17 04:27 Urine Bacteria Rare (<OCC) 03/21/17 04:27 Urine HCG, Qual Negative (NEGATIVE) 03/21/17 04:27 Blood Type B POSITIVE 03/21/17 07:17 Blood Type Confirm B POSITIVE 03/21/17 07:17 Antibody Screen Negative 03/21/17 07:17 Attending/Attestation - Attestation I have personally seen and examined this patient.: Yes I have fully participated in the care of the patient.: Yes I have reviewed all pertinent clinical information, including history, physical exam and plan: Yes Notes (Text): 03/22/17 18:02 Patient was seen and examined at 7:40 AM 03/22/17 370B Exam, assessments and discharge plan were thoroughly gone over with the resident. Cory Guzman D.O.
[2017-03-23] MEDS ORDERED: Pneumococcal 23-Valent Vaccine IM ONE (10:00)
--- NOTE | 2017-03-24 12:03 | VASCLAB ---
PROCEDURE: Lower Extremity Venous Duplex Exam. HISTORY: Leg pain PRIORS: None. TECHNIQUE: Bilateral common femoral, femoral, popliteal and posterior tibial, peroneal and great saphenous veins were evaluated. Flow was assessed with color Doppler, compressibility, assessment of phasic flow and augmentation response. Report prepared by GAYLE Perry, RVT FINDINGS: RIGHT: 1. Common Femoral Vein: 1.1. Compressibility - Fully compressible: Thrombus - None : Flow - Phasic: Augmentation -Normal: Reflux - None. 2. Femoral Vein: 2.1. Compressibility - Fully compressible: Thrombus - None : Flow - Phasic: Augmentation -Normal: Reflux - None. 3. Popliteal Vein: 3.1. Compressibility - Fully compressible: Thrombus - None : Flow - Phasic: Augmentation -Normal: Reflux - None. 4. Posterior Tibial Vein: 4.1. Compressibility - Fully compressible: Thrombus - None: Flow - Phasic: Augmentation -Normal: Reflux - None. 5. Peroneal Vein: 5.1. Compressibility - Fully compressible: Thrombus - None: Flow - Phasic: Augmentation -Normal: Reflux - None. 6. Great Saphenous Vein: 6.1. Compressibility - Fully compressible: Thrombus - None: Flow - Phasic: Augmentation - Normal: Reflux - None. LEFT: 1. Common Femoral Vein: 1.1. Compressibility - Fully compressible: Thrombus - None: Flow - Phasic: Augmentation -Normal: Reflux - None. 2. Femoral Vein: 2.1. Compressibility - Fully compressible: Thrombus - None: Flow - Phasic: Augmentation -Normal: Reflux - None. 3. Popliteal Vein: 3.1. Compressibility - Fully compressible: Thrombus - None : Flow - Phasic: Augmentation -Normal: Reflux - None. 4. Posterior Tibial Vein: 4.1. Compressibility - Fully compressible: Thrombus - None: Flow - Phasic: Augmentation -Normal: Reflux - None. 5. Peroneal Vein: 5.1. Compressibility - Fully compressible: Thrombus - None: Flow - Phasic: Augmentation -Normal: Reflux - None. 6. Great Saphenous Vein: 6.1. Compressibility - Fully compressible: Thrombus - None: Flow - Phasic: Augmentation - Normal: Reflux - None. OTHER FINDINGS: Right: None significant. Left: None significant. IMPRESSION: Right: No evidence of deep or superficial vein thrombosis of the right lower extremity. Normal valve function noted of the right side. Left: No evidence of deep or superficial vein thrombosis of the left lower extremity. Normal valve function noted of the left side.
--- NOTE | 2017-03-24 12:03 | VASCLAB ---
PROCEDURE: HISTORY: Blurry vision COMPARISON: None available. TECHNIQUE: Grayscale and duplex Doppler evaluation of the cervical carotid and vertebral arteries were performed. The common carotid, carotid bifurcations and cervical Internal Carotid Artery (ICA) and proximal External Carotid Artery (ECA) were evaluated. The vertebral arteries were evaluated for gross patency and flow direction. Report prepared by David Ni, BS, RVT FINDINGS: RIGHT CAROTID ARTERIES: 1. Common Carotid Artery: No significant focal plaque formation of the right common carotid artery. Maximum Peak Systolic velocity: 62 cm/sec: End-diastolic velocity 22 cm/sec. 2. Carotid Bifurcation: plaque formation. Maximum Peak Systolic velocity: 57 cm/sec: End-diastolic velocity 21 cm/sec. 3. Internal Carotid Artery: Plaque description: 3.1. Proximal Segment: Peak systolic velocity 92 cm/sec: End-diastolic velocity 34 cm/sec - % stenosis 0-15% 3.2. Middle Segment: Peak systolic velocity 137 cm/sec: End-diastolic velocity 43 cm/sec - % stenosis 16-49% 3.3. Distal Segment: Peak systolic velocity 135 cm/sec: End-diastolic velocity 39 cm/sec - % stenosis 0-15% 4. External Carotid Artery: No significant focal plaque formation. Peak systolic velocity 47 cm/sec 5. ICA/CCA Ratio: 2.2 LEFT CAROTID ARTERIES: 1. Common Carotid Artery: No significant focal plaque formation of the left common carotid artery. Maximum Peak Systolic velocity: 68 cm/sec: End-diastolic velocity 23 cm/sec. 2. Carotid Bifurcation: plaque formation. Maximum Peak Systolic velocity: 61 cm/sec: End-diastolic velocity 22 cm/sec. 3. Internal Carotid Artery: Plaque description: 3.1. Proximal Segment: Peak systolic velocity 54 cm/sec: End-diastolic velocity 22 cm/sec - % stenosis 0-15% 3.2. Middle Segment: Peak systolic velocity 115 cm/sec: End-diastolic velocity 42 cm/sec - % stenosis 16-49% 3.3. Distal Segment: Peak systolic velocity 196 cm/sec: End-diastolic velocity 70 cm/sec - % stenosis 60-70% 4. External Carotid Artery: No significant focal plaque formation. Peak systolic velocity 46 cm/sec 5. ICA/CCA Ratio: 2.9 VERTEBRAL ARTERIES: 1. Right Vertebral Artery: The right vertebral artery flow direction is antegrade. 2. Left Vertebral Artery: The left vertebral artery flow direction is antegrade. OTHER FINDINGS: 1. Right Brachial Blood pressure: 115 mmHg. 2. Left Brachial Blood pressure: MmHg. Severe tortuosity noted bilaterally at the distal internal carotid arteries. IMPRESSION: RIGHT: 16-49% stenosis of the right mid ICA with minimal hemodynamic significance. LEFT: 60-70% stenosis of the left distal ICA with moderate hemodynamic significance.
== END 2017-03-22 15:00 | disposition home or self-care (01) ==
LOC: C.ER 03:54 → C.9OBSV 04:35 → C.9E 07:52 → C.3T 16:57
PROVIDERS: ADMIT Hospitalist; ATTEND Hospitalist
DX: D62 Acute posthemorrhagic anemia (principal); N93.8 Other specified abnormal uterine and vaginal bleeding; N83.201 Unspecified ovarian cyst, right side; K80.20 Calculus of gallbladder without cholecystitis without obstruction; R42 Dizziness and giddiness; H53.8 Other visual disturbances; F17.210 Nicotine dependence, cigarettes, uncomplicated; N89.8 Other specified noninflammatory disorders of vagina; D25.9 Leiomyoma of uterus, unspecified; R51 Headache; M79.606 Pain in leg, unspecified
CPT/HCPCS: 36415; 36430; 70450; 74177; 76830; 76856; 80053; 81001; 83036; 84703; 85025; 86703; 86850; 86900; 86920; 93880; 93970; 96361; 96372; 96374; 96375; 99285; G0378; J1650; J2270; J2405; J7040; P9051; Q9967

== ENCOUNTER 2018-07-09 21:45 | Emergency (ER) | payer SELFPAY ==
[2018-07-09 21:46] VITALS: BMI 22.3
[2018-07-09 21:55] VITALS: BP 153/98; PULSE 94; TEMP 98; O2SAT 100
--- NOTE | 2018-07-09 22:28 | C.PDOC ---
History Of Present Illness 40 year old female presents to the ER with a complaint of left shoulder pain and left upper back pain that began today. 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 Denies trauma, injury, weakness, or numbness. Time Seen by Provider: 07/09/18 22:06 Chief Complaint (Nursing): Upper Extremity Problem/Injury History Per: Patient History/Exam Limitations: no limitations Onset/Duration Of Symptoms: Hrs Current Symptoms Are (Timing): Still Present Recent travel outside of the [place]: No Past Medical History Reviewed: Historical Data, Nursing Documentation, Vital Signs Vital Signs: Last Vital Signs Temp 98 F 07/09/18 21:52 Pulse 94 H 07/09/18 21:52 Resp 18 07/09/18 21:52 BP 153/98 H 07/09/18 21:52 Pulse Ox 100 07/09/18 21:52 - Medical History PMH: Anemia Denies: Chronic Kidney Disease Family History: States: Unknown Family Hx - Social History Hx Tobacco Use: Yes Hx Alcohol Use: Yes Hx Substance Use: Yes (marijuana) - Immunization History Hx Tetanus Toxoid Vaccination: No Hx Influenza Vaccination: No Hx Pneumococcal Vaccination: No Review Of Systems Musculoskeletal: Positive for: Shoulder Pain (Left), Back Pain (Left upper) Neurological: Negative for: Weakness, Numbness Physical Exam - Physical Exam Appears: Non-toxic Skin: Warm, Dry Head: Normacephalic Eye(s): bilateral: Normal Inspection Oral Mucosa: Moist Back: No Muscle Spasm Extremity: Normal ROM (x4), Tenderness (Tenderness/spasm to left upper back/shoulder area), No Swelling Extremity: Bilateral: Atraumatic Neurological/Psych: Oriented x3, Normal Speech, Normal Motor, Normal Sensation Gait: Steady ED Course And Treatment O2 Sat by Pulse Oximetry: 100 (Room air) Pulse Ox Interpretation: Normal Progress Note: Motrin and flexeril administered. Patient is resting comfortably in the ER in no acute distress, vitals are stable, will discharge home with Rx and instructions to follow up with PMD. Disposition Counseled Patient/Family Regarding: Diagnosis, Need For Followup - Disposition Referrals: Non 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 - Scribe Statement The provider has reviewed the documentation as recorded by the Scribzully Johnson All medical record entries made by the Ashley were at my direction and personally dictated by me. I have reviewed the chart and agree that the record accurately reflects my personal performance of the history, physical exam, medical decision making, and the department course for this patient. I have also personally directed, reviewed, and agree with the discharge instructions and disposition.
[2018-07-09 23:10] VITALS: RESP 20
== END 2018-07-09 23:09 | disposition home or self-care (01) ==
LOC: C.ER 21:45 → SUPCPDRO 21:45 → C.ER 23:09
DX: S43.402A Unspecified sprain of left shoulder joint, initial encounter (principal); X50.0XXA Overexertion from strenuous movement or load, initial encounter; Y92.89 Other specified places as the place of occurrence of the external cause; Y99.0 Civilian activity done for income or pay